=== PATIENT | female | born 1950 | race African-American/Black ===

== ENCOUNTER → 2017-05-02 | Outpatient (CLI) | payer OTHER, MEDICARE | END | disposition home or self-care (01) | LOC: MAMMO 10:15 | DX: Z12.31 Encounter for screening mammogram for malignant neoplasm of breast (principal) | CPT/HCPCS: 77067 ==

== ENCOUNTER → 2018-05-05 | Outpatient (CLI) | payer OTHER, MEDICARE ==
[2015-04-30 01:58] VITALS: BP 150/78
[~2018-05-05] MED LIST: AMLO10TA6 PO; AMLO2.5T3 PO; HYDR-2145 PO; IRBE150T3 PO; LEVO500T8 PO; VALS160T3 PO
--- NOTE | 2018-05-07 14:55 | RAD ---
DATE: 05/05/2018 EXAM: MAMMO REID SCREENING BILATERAL HISTORY: Routine screening COMPARISON: 05/02/2017 This study was interpreted with the benefit of Computerized Aided Detection (CAD). Breast Density: HETERO The breast parenchyma is heterogenously dense, which could reduce sensitivity of mammography. Breast parenchyma level C. FINDINGS: 2-D and 3-D tomosynthesis imaging was performed in CC and MLO projections. No new or enlarging breast densities are seen. No suspicious microcalcifications are evident. IMPRESSION: Stable mammograms without evidence of malignancy. BI-RADS CATEGORY: 1 NEGATIVE RECOMMENDED FOLLOW-UP: 12M 12 MONTH FOLLOW-UP PQRS compliance statement: Patient information was entered into a reminder system with a target due date for the next mammogram. Mammography is a sensitive method for finding small breast cancers, but it does not detect them all and is not a substitute for careful clinical examination. A negative mammogram does not negate a clinically suspicious finding and should not result in delay in biopsying a clinically suspicious abnormality. "Our facility is accredited by the [employer] Mammography [employer]."
== END | disposition home or self-care (01) ==
LOC: MAMMO 09:40
PROVIDERS: ATTEND Internal Medicine
DX: Z12.31 Encounter for screening mammogram for malignant neoplasm of breast (principal)
CPT/HCPCS: 77063; 77067

== ENCOUNTER → 2019-04-18 | Outpatient (CLI) | payer OTHER, MEDICARE ==
[2015-04-30 01:58] VITALS: BP 150/78
[~2019-04-18] MED LIST changes: -AMLO10TA6 PO; +AMLO10TA8 PO; -AMLO2.5T3 PO; +AMLO2.5T5 PO
== END | disposition home or self-care (01) ==
LOC: LAB 09:57
PROVIDERS: ATTEND Internal Medicine Cardiovascular Disease
DX: I10 Essential (primary) hypertension (principal)
CPT/HCPCS: 82088; 84244

== ENCOUNTER → 2019-05-02 | Outpatient (CLI) | payer OTHER, MEDICARE ==
[2015-04-30 01:58] VITALS: BP 150/78
--- NOTE | 2019-05-02 08:06 | RAD ---
MR#: [id number] Date of Study: 05/02/2019 Ordering Physician: PACHECO PAK, Referring Physician: PACHECO PAK, Tech: Leslie Swain RVT,NAVARRO APPROVED REPORT Patient Location: OUT-PATIENT Indications Uncontrolled HTN Renal Artery Doppler Right Renal Artery Left Renal Arter y Proximal 126.1/40.5 cm/secProximal 144.6/46.3 cm/sec Mid 153.9/34.7 cm/secMid 120.3/32.4 cm/sec Distal 184.3/44.8 cm/secDistal 89.1/22.0 cm/sec Renal/Aorta Ratio 1.80Renal/Aorta Ratio 1.40 Prox. Resistive Index 0.68Prox. Resistive Index 0.68 Mid Resistive Index 0.77Mid Resistive Index 0.73 Distal Resistive Index 0.76Distal Resistive Index 0.75 Aortic Doppler VelocityWaveform Proximal Aorta 78.7 cm/sec Mid. Aorta 102.8 cm/sec Distal Aorta 98.7 cm/sec Findings Limited grayscale images of the bilateral kidneys and aorta are unremarkable. Aortic velocities are within normal limits. Spectral waveforms and color Doppler involving the proximal, mid and distal renal arteries are grossl y within normal limits. Minimally elevated peak systolic velocities in the distal right renal artery but no evidence of significant renal artery stenosis. Normal renal to aortic ratios. Critical Notification Critical Value: No <Conclusion> No significant renal artery stenosis bilaterally. Signed by : Contreras Marquez, Electronically Approved : 05/02/2019 08:06:35
--- NOTE | 2019-05-02 08:47 | CARD ---
MR#: [id number] Date of Study: 05/02/2019 Ordering Physician: PACHECO PAK, Referring Physician: PACHECO PAK Tech: Yulissa Rich RDCS APPROVED REPORT EXAM: Two-dimensional and M-mode echocardiogram with Doppler and color Doppler. Other Information Quality : Good INDICATION Hypertension/HCVD 2D DIMENSIONS RVDd3.0 (2.9-3.5cm)Left Atrium(2D)3.7 (1.6-4.0cm) IVSd0.7 (0.7-1.1cm)Aortic Root(2D)2.9 (2.0-3.7cm) LVDd4.5 (3.9-5.9cm)LVOT Diameter2.0 (1.8-2.4cm) PWd0.7 (0.7-1.1cm)LVDs2.5 (2.5-4.0cm) FS (%) 30.0 %SV69.1 ml LVEF(%)60.0 (>50%) Aortic Valve AoV Peak Bashir.133.6cm/sAoV VTI26.2cm AO Peak GR.7.1mmHgLVOT Peak Bashir.118.9cm/s AO Mean GR.4mmHgAVA (VMAX)2.75cm2 DAHLIA (VTI)2.90cm2 Mitral Valve MV E Yeunjllp29.5cm/sMV DECEL KIBD252oa MV A Cyjlrlwu84.4cm/sE/A Ratio0.8 Tricuspid Valve TR P. Xvrguely160vj/sRAP WXZRXXUR8goXe TR Peak Gr.33mbKkKNQE54vkEm Pulmonary Vein S1 Jotolnqh34.5cm/sD2 Dvitabti06.0cm/s LEFT VENTRICLE The left ventricle is normal size. There is normal left ventricular wall thickness. The left ventricu lar systolic function is normal and the ejection fraction is within normal range. The Ejection Fracti on is 55-60%. There is normal LV segmental wall motion. Transmitral Doppler flow pattern is Grade I-a bnormal relaxation pattern. RIGHT VENTRICLE The right ventricle is normal size. The right ventricular systolic function is normal. ATRIA The left atrium size is normal. The right atrium size is normal. The interatrial septum is intact wit h no evidence for an atrial septal defect or patent foramen ovale as noted on 2-D or Doppler imaging. AORTIC VALVE The aortic valve is mildly thickened but opens well. Doppler and Color Flow revealed no significant a ortic regurgitation. There is no significant aortic valvular stenosis. MITRAL VALVE The mitral valve is normal in structure and function. There is no evidence of mitral valve prolapse. There is no mitral valve stenosis. Doppler and Color Flow revealed no mitral valve regurgitation note d. TRICUSPID VALVE The tricuspid valve is normal in structure and function. Doppler and Color Flow revealed trace tricus pid regurgitation. The PA pressure was estimated at 27 mmHg. There is no tricuspid valve stenosis. PULMONIC VALVE The pulmonary valve is normal in structure and function. Doppler and Color Flow revealed mild pulmoni c valvular regurgitation. There is no pulmonic valvular stenosis. GREAT VESSELS The aortic root is normal in size. The ascending aorta is mildly dilated at 3.4 cm. The IVC is normal in size and collapses >50% with inspiration. PERICARDIAL EFFUSION There is no evidence of significant pericardial effusion. Critical Notification Critical Value: No <Conclusion> The left ventricular systolic function is normal and the ejection fraction is within normal range. Th e Ejection Fraction is 55-60%. There is normal LV segmental wall motion. The ascending aorta is mildly dilated at 3.4 cm. Signed by : Contreras Marquez, Electronically Approved : 05/02/2019 08:47:22
== END | disposition home or self-care (01) ==
LOC: US 07:08
PROVIDERS: ATTEND Internal Medicine Cardiovascular Disease
DX: I37.1 Nonrheumatic pulmonary valve insufficiency (principal); I10 Essential (primary) hypertension
CPT/HCPCS: 76770; 93306

== ENCOUNTER → 2019-05-04 | Outpatient (CLI) | payer OTHER, MEDICARE ==
[2015-04-30 01:58] VITALS: BP 150/78
[~2019-05-04] MED LIST changes: +CARV25TA2 PO; +HYDR-2869 PO; +METF500T16 PO; +SPIR50TA4 PO; +TELM1TAB3 PO
--- NOTE | 2019-05-06 17:15 | RAD ---
DATE: 05/04/2019 EXAM: MAMMO REID SCREENING BILATERAL HISTORY: Routine screening COMPARISON: 05/05/2018, 05/02/2017, 04/29/2016, 04/30/2015 This study was interpreted with the benefit of Computerized Aided Detection (CAD). Breast Density: SCATTERED The breast parenchyma shows scattered fibroglandular densities. Breast parenchyma level B. FINDINGS: No suspicious calcification or distortion. No masses in the interval. IMPRESSION: Stable BI-RADS CATEGORY: 1 NEGATIVE RECOMMENDED FOLLOW-UP: 12M 12 MONTH FOLLOW-UP PQRS compliance statement: Patient information was entered into a reminder system with a target due date for the next mammogram. Mammography is a sensitive method for finding small breast cancers, but it does not detect them all and is not a substitute for careful clinical examination. A negative mammogram does not negate a clinically suspicious finding and should not result in delay in biopsying a clinically suspicious abnormality. "Our facility is accredited by the [employer] Mammography Program."
== END | disposition home or self-care (01) ==
LOC: MAMMO 08:43
PROVIDERS: ATTEND Internal Medicine
DX: Z12.31 Encounter for screening mammogram for malignant neoplasm of breast (principal)
CPT/HCPCS: 77063; 77067

== ENCOUNTER 2019-05-06 16:56 | Emergency (ER) | payer OTHER, MEDICARE ==
[~2019-05-06] VITALS: Ht 165.1 cm; Wt 88.0 kg
[~2019-05-06 16:56] MED LIST changes: -CARV25TA2 PO; -HYDR-2869 PO; -METF500T16 PO; -SPIR50TA4 PO; -TELM1TAB3 PO
--- NOTE | 2019-05-06 19:20 | PHYS DOC ---
Past Medical History Past Medical History: Hypertension Past Surgical History: No Surgical History Alcohol Use: None Drug Use: None Adult General Chief Complaint Chief Complaint: HYPERTENSION HPI HPI 68-year-old female presents to the emergency department with complaints of elevated blood pressure. Patient had multiple adjustments of medications with her primary care physician, she was recently referred to cardiology. Patient has had further adjustment per cardiology most recently on Monday. She did have an echocardiogram performed as well as a ultrasound of her kidneys. Results of the kidney ultrasound revealed no critical renal artery stenosis. Current blood pressure 197/101, heart rate 110. She does describe palpitations off and on however cannot give me timeline, or how long they last period. She currently denies chest pain on exam. Patient denies SOB, nausea, vomiting, abdominal pain. She describes inability to sleep, jitteriness. Nothing makes her symptoms worse, nothing makes her symptoms better on exam. Review of Systems Review of Systems Constitutional: Denies fever or chills [] Respiratory: Denies cough or shortness of breath [] Cardiovascular: No additional information not addressed in HPI [] GI: Denies abdominal pain, nausea, vomiting, bloody stools or diarrhea [] Musculoskeletal: Denies back pain or joint pain [] Neurologic: Denies headache, focal weakness or sensory changes [] All other systems were reviewed and found to be within normal limits, except as documented in this note. Current Medications Current Medications Current Medications Medications (Trade) Dose Ordered Sig/[facility] Start Time Stop Time Status Last Admin Dose Admin Aspirin (Children'S Aspirin) 324 mg 1X ONCE 05/06/19 19:15 05/06/19 19:16 DC 05/06/19 19:59 324 MG Labetalol HCl (Normodyne Iv Push) 10 mg 1X ONCE 05/06/19 19:45 05/06/19 19:46 DC Allergies Allergies Allergies Coded Allergies Type Severity Reaction Last Updated Verified No Known Drug Allergies 07/29/14 No Physical Exam Physical Exam Constitutional: Well developed, well nourished, no acute distress, non-toxic appearance. [] HENT: Normocephalic, atraumatic, bilateral external ears normal, oropharynx moist, nose normal. [] Eyes: PERRLA, EOMI, conjunctiva normal, no discharge. [] Cardiovascular:Heart rate regular rhythm, no murmur [] Lungs & Thorax: Bilateral breath sounds clear to auscultation [] Abdomen: Bowel sounds normal, soft, no tenderness, no masses, no pulsatile masses. [] Skin: Warm, dry, no erythema, no rash. [] Extremities: No tenderness, no edema. [] Neurologic: Alert and oriented X 3, no focal deficits noted. [] Psychologic: Affect normal, judgement normal, mood normal. [] Current Patient Data Vital Signs Vital Signs Date Time Temp Pulse Resp B/P (MAP) Pulse Ox O2 Delivery O2 Flow Rate FiO2 05/06/19 19:10 98.3 109 18 197/101 (133) 95 Room Air 98.3 Lab Values Laboratory Tests Test 05/06/19 19:45 White Blood Count 7.3 x10^3/uL (4.0-11.0) Red Blood Count 4.45 x10^6/uL (3.50-5.40) Hemoglobin 13.8 g/dL (12.0-15.5) Hematocrit 39.9 % (36.0-47.0) Mean Corpuscular Volume 90 fL (79-100) Mean Corpuscular Hemoglobin 31 pg (25-35) Mean Corpuscular Hemoglobin Concent 35 g/dL (31-37) Red Cell Distribution Width 13.4 % (11.5-14.5) Platelet Count 310 x10^3/uL (140-400) Neutrophils (%) (Auto) 65 % (31-73) Lymphocytes (%) (Auto) 25 % (24-48) Monocytes (%) (Auto) 9 % (0-9) Eosinophils (%) (Auto) 1 % (0-3) Basophils (%) (Auto) 1 % (0-3) Neutrophils # (Auto) 4.7 x10^3/uL (1.8-7.7) Lymphocytes # (Auto) 1.8 x10^3/uL (1.0-4.8) Monocytes # (Auto) 0.7 x10^3/uL (0.0-1.1) Eosinophils # (Auto) 0.0 x10^3/uL (0.0-0.7) Basophils # (Auto) 0.0 x10^3/uL (0.0-0.2) Urine Collection Type Unknown Urine Color Yellow Urine Clarity Clear Urine pH 5.5 Urine Specific Reeves 1.010 Urine Protein Negative mg/dL (NEG-TRACE) Urine Glucose (UA) Negative mg/dL (NEG) Urine Ketones (Stick) 15 mg/dL (NEG) Urine Blood Negative (NEG) Urine Nitrite Negative (NEG) Urine Bilirubin Negative (NEG) Urine Urobilinogen Dipstick 0.2 mg/dL (0.2 mg/dL) Urine Leukocyte Esterase Trace (NEG) Urine RBC Occ /HPF (0-2) Urine WBC 1-4 /HPF (0-4) Urine Squamous Epithelial Cells Occ /LPF Urine Bacteria 0 /HPF (0-FEW) Sodium Level 138 mmol/L (136-145) Potassium Level 3.7 mmol/L (3.5-5.1) Chloride Level 101 mmol/L (98-107) Carbon Dioxide Level 24 mmol/L (21-32) Anion Gap 13 (6-14) Blood Urea Nitrogen 16 mg/dL (7-20) Creatinine 0.9 mg/dL (0.6-1.0) Estimated GFR (Cockcroft-Gault) 75.1 BUN/Creatinine Ratio 18 (6-20) Glucose Level 115 mg/dL (70-99) H Calcium Level 10.0 mg/dL (8.5-10.1) Magnesium Level 2.1 mg/dL (1.8-2.4) Total Bilirubin 0.3 mg/dL (0.2-1.0) Aspartate Amino Transferase (AST) 21 U/L (15-37) Alanine Aminotransferase (ALT) 17 U/L (14-59) Alkaline Phosphatase 88 U/L (46-116) Troponin I Quantitative < 0.017 ng/mL (0.000-0.055) TT-Cco-F-Type Natriuretic Peptide 38 pg/mL (0-124) Total Protein 8.4 g/dL (6.4-8.2) H Albumin 4.6 g/dL (3.4-5.0) Albumin/Globulin Ratio 1.2 (1.0-1.7) Laboratory Tests 05/06/19 19:45 Laboratory Tests 05/06/19 19:45 EKG EKG [] Radiology/Procedures Radiology/Procedures [] Course & Med Decision Making Course & Med Decision Making Pertinent Labs and Imaging studies reviewed. (See chart for details) []68-year-old female presents to the emergency department with complaints of elevated blood pressure. Patient had multiple adjustments of medications with h er primary care physician, she was recently referred to cardiology. Patient has had further adjustment per cardiology most recently on Monday. She did have an echocardiogram performed as well as a ultrasound of her kidneys. Results of the kidney ultrasound revealed no critical renal artery stenosis. Current blood pressure 197/101, heart rate 110. She does describe palpitations off and on however cannot give me timeline, or how long they last period. She currently denies chest pain on exam. Patient denies SOB, nausea, vomiting, abdominal pain. She describes inability to sleep, jitteriness. Nothing makes her symptoms worse, nothing makes her symptoms better on exam. Laboratory values reviewed in the emergency department, urinalysis negative, troponin negative, chest x-ray negative EKG reviewed C interpretation 99, heart rate, left axis deviation, no STEMI Labetalol 10 mg ordered in the emergency Department however patient's blood pressure currently 161 over 80s - did not use BP remains stable at this time Discussed follow up with cardiology, call office in AM Discussed use of clonidine 0.1mg po as needed for BP > 200/100 Discussed dc plans Return precautions provided Dragon Disclaimer Dragon Disclaimer This electronic medical record was generated, in whole or in part, using a voice recognition dictation system. Departure Departure Impression: Primary Impression: Accelerated hypertension Disposition: HOME, SELF-CARE Condition: IMPROVED Referrals: EVERARDO BRASWELL MD (PCP) Patient Instructions: Hypertension Additional Instructions: Recommend follow up with PCP 3 - 5 days Return to the ER with worsening symptoms, intractable pain, fever, altered mental status Tylenol as needed for pain Recommend calling cardiology office for follow up sooner if possible Recommend continued medications as prescribed Recommend clonidine 0.1mg po as needed for BP > 200/100, may repeat in 1 hour if no improvement come to ER for follow up US of kidneys within normal limits, no evidence of renal artery stenosis Consider sleep apnea workup as outpatient AARON PUTNAM MD May 06, 2019 19:20
[2019-05-06] MEDS: LABETALOL 20 MG/4 ML DISP.SYRIN. IVP ONE (19:45)
--- NOTE | 2019-05-06 19:57 | RAD ---
AP chest. HISTORY: Chest pain AP view was taken of the chest. Lungs are clear. Heart is normal in size. There is no effusion. IMPRESSION: 1. No acute chest disease. Electronically signed by: Desean Mcallister MD (05/06/2019 7:54 PM) [facility]
[2019-05-06 19:59] LABS: BASO % 1 % (0-3); EOS % 1 % (0-3); HEMATOCRIT 39.9 % (36.0-47.0); HEMOGLOBIN 13.8 g/dL (12.0-15.5); LYMPH # 1.8 x10^3/uL (1.0-4.8); LYMPH % 25 % (24-48); MEAN CORPUSCULAR HEMOGLOBIN 31 pg (25-35); MEAN CORPUSCULAR HGB CONC 35 g/dL (31-37); MEAN CORPUSCULAR VOLUME 90 fL (79-100); MONO # 0.7 x10^3/uL (0.0-1.1); MONO % 9 % (0-9); NEUT # 4.7 x10^3/uL (1.8-7.7); NEUT % 65 % (31-73); PLATELET COUNT 310 x10^3/uL (140-400); RED BLOOD COUNT 4.45 x10^6/uL (3.50-5.40); RED CELL DISTRIBUTION WIDTH 13.4 % (11.5-14.5); WHITE BLOOD COUNT 7.3 x10^3/uL (4.0-11.0)
[2019-05-06] MEDS: ASPIRIN CHEWABLE 81 MG TABLET. PO ONE (19:59)
[2019-05-06 20:02] LABS: BILIRUBIN,URINE NEGATIVE (NEG); CLARITY,URINE CLEAR; COLOR,URINE YELLOW; NITRITE,URINE NEGATIVE (NEG); PH,URINE 5.5; PROTEIN,URINE NEGATIVE (NEG-TRACE); UROBILINOGEN,URINE 0.2 mg/dL (0.2 mg/dL)
[2019-05-06 20:08] LABS: CREATININE 0.9 mg/dL (0.6-1.0); GFR 75.1; POTASSIUM 3.7 mmol/L (3.5-5.1)
[2019-05-06 20:11] LABS: BACTERIA,URINE 0 /HPF (0-FEW); RBC,URINE OCC /HPF (0-2); SQUAMOUS EPITHELIAL CELL,UR OCC /LPF
[2019-05-06 20:14] LABS: ALBUMIN 4.6 g/dL (3.4-5.0); ALBUMIN/GLOBULIN RATIO 1.2 (1.0-1.7); MAGNESIUM 2.1 mg/dL (1.8-2.4); TOTAL BILIRUBIN 0.3 mg/dL (0.2-1.0); TOTAL PROTEIN 8.4 g/dL (6.4-8.2)
[2019-05-06 20:52] VITALS: BP 167/88
--- NOTE | 2019-05-07 05:41 | EKG ---
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
[2019-05-08] MEDS ORDERED: METF500T16 PO (05:39)
[2019-05-08] MEDS ORDERED: HYDR-2869 PO (05:39)
[2019-05-08] MEDS ORDERED: SPIR50TA4 PO (05:39)
[2019-05-08] MEDS ORDERED: TELM1TAB3 PO (05:39)
[2019-05-08] MEDS ORDERED: CARV25TA2 PO (15:40)
== END 2019-05-06 20:48 | disposition home or self-care (01) ==
LOC: ER 16:56
DX: I10 Essential (primary) hypertension (principal)
CPT/HCPCS: 36415; 71045; 80053; 81001; 83735; 83880; 84484; 85025; 87086; 93005; 99285-25

== ENCOUNTER → 2020-05-07 | Outpatient (CLI) | payer MEDICARE, OTHER ==
[2019-05-08 18:13] VITALS: BP 148/70
[~2020-05-07] MED LIST changes: +AMLO-187 PO; -AMLO10TA8 PO; +CARV25TA2 PO; +HYDR-2869 PO; +IRBE150T21 PO; -IRBE150T3 PO; +METF500T16 PO; +SPIR50TA4 PO; +TELM1TAB3 PO
--- NOTE | 2020-05-07 09:57 | RAD ---
EXAM: Bilateral digital screening mammogram with tomosynthesis. HISTORY: 69-year-old female presents for screening mammography. TECHNIQUE: Full-field digital craniocaudal and mediolateral oblique 2D and 3D tomosynthesis images of both breasts are obtained for evaluation. Computer aided detection was applied. COMPARISON: 05/04/2019 BREAST PARENCHYMAL DENSITY: Level B - Scattered fibroglandular densities. FINDINGS: There is no new suspicious mass, microcalcification or region of architectural distortion. IMPRESSION: BI-RADS Category 2: Benign finding(s). RECOMMENDATION: Annual mammography is recommended. If your mammogram demonstrates that you have dense breast tissue, which could hide abnormalities, and if you have other risk factors for breast cancer that have been identified, you might benefit from s upplemental screening tests that may be suggested by your ordering physician. Dense breast tissue, i n and of itself, is a relatively common condition. This information is not provided to cause undue c oncern, but rather to raise your awareness and to promote discussion with your physician regarding th e presence of other risk factors, in addition to dense breast tissue. A report of your mammography re sults will be sent to you and your physician. You should contact your physician if you have any ques tions or concerns regarding this report. Mammography is a sensitive method for finding small breast cancers, but it does not detect them all a nd is not a substitute for careful clinical examination. A negative mammogram does not negate a clin ically suspicious finding and should not result in delay in biopsying a clinically suspicious abnorma lity. PQRS compliance statement - Patient information was entered into a reminder system with a target due date for the next mammogram. "Our facility is accredited by the [employer] Mammography Program." Electronically signed by: Rosey Murdock MD (05/07/2020 9:54 AM) [id number]
== END ==
LOC: MAMMO 09:08
PROVIDERS: ATTEND Internal Medicine
DX: Z12.31 Encounter for screening mammogram for malignant neoplasm of breast (principal)
CPT/HCPCS: 77063; 77067

== ENCOUNTER → 2020-11-25 | Outpatient (CLI) | payer MEDICARE, OTHER ==
[2019-05-08 18:13] VITALS: BP 148/70
--- NOTE | 2020-11-25 14:49 | CARD ---
MR#: [id number] Date of Study: 11/25/2020 Ordering Physician: PACHECO PAK, Referring Physician: PACHECO PAK Tech: Cait Preston [facility] APPROVED REPORT EXAM: Two-dimensional and M-mode echocardiogram with Doppler and color Doppler. Other Information Quality : GoodHR: 72bpm Rhythm : NSR INDICATION Hypertension/HCVD RISK FACTORS Hypertension Obesity 2D DIMENSIONS RVDd2.8 (2.9-3.5cm)Left Atrium(2D)4.1 (1.6-4.0cm) IVSd1.0 (0.7-1.1cm)Aortic Root(2D)3.2 (2.0-3.7cm) LVDd4.1 (3.9-5.9cm)LVOT Diameter2.1 (1.8-2.4cm) PWd1.1 (0.7-1.1cm)LVDs2.4 (2.5-4.0cm) FS (%) 42.3 %SV55.9 ml LVEF(%)73.8 (>50%) Aortic Valve AoV Peak Bashir.162.6cm/sAoV VTI31.8cm AO Peak GR.10.6mmHgLVOT Peak Bashir.100.7cm/s AO Mean GR.5mmHgAVA (VMAX)2.08cm2 Mitral Valve MV E Uwlnsrft68.6cm/sMV DECEL OABY134hk MV A Rnxsaedp44.1cm/sE/A Ratio0.7 Pulmonary Valve PV Peak Teedomln277.6cm/s Tricuspid Valve TR P. Ckhqkvxy850hs/sTR Peak Gr.25mmHg LEFT VENTRICLE The left ventricle is normal size. There is mild concentric left ventricular hypertrophy. The left ve ntricular systolic function is normal and the ejection fraction is within normal range. Estimated eje ction 55-60%. There is normal LV segmental wall motion. Transmitral Doppler flow pattern is Grade I-a bnormal relaxation pattern. RIGHT VENTRICLE The right ventricle is normal size. There is normal right ventricular wall thickness. The right ventr icular systolic function is normal. ATRIA The left atrium size is normal. The right atrium size is normal. The interatrial septum is intact wit h no evidence for an atrial septal defect or patent foramen ovale as noted on 2-D or Doppler imaging. AORTIC VALVE The aortic valve is normal in structure and function. Doppler and Color Flow revealed no significant aortic regurgitation. There is no significant aortic valvular stenosis. MITRAL VALVE The mitral valve is normal in structure and function. There is no evidence of mitral valve prolapse. There is no mitral valve stenosis. Doppler and Color-flow revealed mild mitral regurgitation. TRICUSPID VALVE The tricuspid valve is normal in structure and function. Doppler and Color Flow revealed mild tricusp id regurgitation. There is no tricuspid valve stenosis. PULMONIC VALVE Doppler and Color Flow revealed mild pulmonic valvular regurgitation. There is no pulmonic valvular s tenosis. GREAT VESSELS The aortic root is normal in size. The ascending aorta is normal in size. The IVC is normal in size a nd collapses >50% with inspiration. PERICARDIAL EFFUSION There is no evidence of significant pericardial effusion. Critical Notification Critical Value: No <Conclusion> There is mild concentric left ventricular hypertrophy. The left ventricular systolic function is normal and the ejection fraction is within normal range. E stimated ejection 55-60%. There is normal LV segmental wall motion. Doppler and Color Flow revealed mild pulmonic valvular regurgitation. Signed by : Contreras Marquez, Electronically Approved : 11/25/2020 14:49:01
== END ==
LOC: ECHO 07:43
PROVIDERS: ATTEND Internal Medicine Cardiovascular Disease
DX: I08.8 Other rheumatic multiple valve diseases (principal); I10 Essential (primary) hypertension
CPT/HCPCS: 93306

== ENCOUNTER → 2021-05-17 | Outpatient (CLI) | payer OTHER ==
[2019-05-08 18:13] VITALS: BP 148/70
[~2021-05-17] MED LIST changes: -LEVO500T8 PO; +LEVO500T9 PO
--- NOTE | 2021-05-17 12:04 | RAD ---
BILATERAL DIGITAL SCREENING 2-D AND 3-D MAMMOGRAM INDICATION: Routine screening. COMPARISON: May 07, 2020 Interpretation was made using CAD. FINDINGS: Breast Density: There are scattered areas of fibroglandular density. RIGHT BREAST: No suspicious masses, calcifications or areas of architectural distortion are seen. LEFT BREAST: No suspicious masses, calcifications or areas of architectural distortion are seen. IMPRESSION: 1. No imaging evidence of malignancy. ASSESSMENT: BI-RADS 1. Negative. RECOMMENDATION: Routine annual screening mammogram. The facility will notify the patient of the results via mail. Patient information will be entered int o the mammography reminder system with a target recall date for the next mammogram. A reminder letter will be generated by the facility. Electronically signed by: Silvia Gregory MD (05/17/2021 12:02 PM) [id number]
== END ==
LOC: MAMMO 08:06
PROVIDERS: ATTEND Internal Medicine
DX: Z12.31 Encounter for screening mammogram for malignant neoplasm of breast (principal)
CPT/HCPCS: 77063; 77067